=== PATIENT | male | born 1990 | race Caucasian/White ===

== ENCOUNTER 2021-06-10 08:30 | Emergency (ER) | payer OTHER ==
[~2021-06-10] VITALS: Ht 157.5 cm; Wt 75.4 kg
[2021-06-10 08:41] VITALS: BP 124/71
== END 2021-06-10 10:04 | disposition home or self-care (01) ==
LOC: ER 08:32
DX: M25.561 Pain in right knee (principal); M25.562 Pain in left knee; G89.29 Other chronic pain
CPT/HCPCS: 73564; 99283